=== PATIENT | female | born 1975 | race Caucasian/White ===

== ENCOUNTER → 2017-08-05 | Outpatient (CLI) | payer OTHER ==
[~2017-08-05] MED LIST: DICL75TA PO; FENO1TAB46 PO; GABA300C5 PO; LEVO125T4 PO; OMEGCAP PO
== END ==
LOC: CPRE 10:45
PROVIDERS: ATTEND Obstetrics & Gynecology
DX: Z00.00 Encounter for general adult medical examination without abnormal findings (principal)

== ENCOUNTER → 2017-08-13 | Day surgery (SDC) | payer OTHER ==
[~2017-08-13] VITALS: Ht 152.4 cm; Wt 71.0 kg
[~2017-08-13] MED LIST changes: +*morphine SULFATE 10 MG/ML PERIprocedure ONLY ONE; +ACETAMINOPHEN 1000 MG/100 ML 100 ML IV ONE; +BUPIVACAINE HCL PF 0.25% 30 ML VIAL ONE; +CHLORHEXIDINE GLUCONATE 2 % 1 PACK (2 CLOTHS) TOPICAL PRN; +DEXAMETHASONE SOD PHOS 4 MG/ML VIAL IV ONE; +DO NOT ADM ANY ANTICOAGULANT DRUGS PRN; +IBUPROFEN 600 MG TAB PO PRN; +KETOROLAC TROMETHAMINE 30 MG/ML (IVP) VIAL IV PUSH ONE; +KETOROLAC TROMETHAMINE 30 MG/ML (IVP) VIAL IVP PRN; +LACTATED RINGER'S 1000 ML INJ 1,000 ML IV ONE; +LACTATED RINGER'S 1000 ML INJ 1,000 ML IV SCH; +LACTATED RINGER'S 1000 ML IV PRN; +LIDOCAINE HCL 1% PF 5 ML SYRINGE OTHER ONE; +LORazepam 0.5 MG TAB PO PRN; +METOPROLOL TARTRATE 25 MG TAB PO PRN; +MIDAZOLAM HCL 2 MG/2 ML VIAL ONE; +MORPHINE SULFATE 4 MG/ML INJ IV PUSH PRN; +NORMOSOL R INJ 1,000 ML IV ONE; +ONDANSETRON HCL 4 MG/2 ML VIAL IV ONE; +ONDANSETRON HCL 4 MG/2 ML VIAL IVP PRN; +PHENYLEPH/NS 1000 MCG/10 ML SYR IV ONE; +POVIDONE IODINE 5% (ANTISEPSIS KIT) 4 APPLICATIONS EACH NARE PRN; +PROPOFOL 200 MG/20 ML AMP IV ONE; +ROCURONIUM INJ 50 MG/5 ML SYRINGE IV PUSH ONE; +SODIUM CHLORID 0.9% 500 ML IV PRN; +SODIUM CHLORIDE 0.9% FLUSH 10 ML FLUSH IV FLUSH PRN; +SODIUM CHLORIDE 0.9% FLUSH 10 ML FLUSH IV FLUSH SCH; +SUGAMMADEX SODIUM 200 MG/2 ML VIAL IV PUSH ONE; +ceFAZolin 2 GM PREMIX 50 ML IV SCH; +diphenhydrAMINE HCL 25 MG CAP PO PRN; +ePHEDrine/NS 25 MG/5 ML SYRINGE IV ONE; +oxyCODONE/ACETAMINOPHEN 5 MG/325 MG TAB PO PRN
--- NOTE | 2017-08-13 11:49 | MP ---
cc: Nixon Reza MD DATE OF OPERATION: 08/13/2017 PREOPERATIVE DIAGNOSIS: Patient with symptomatic large uterine fibroids, menorrhagia, pelvic pain. PROCEDURE: Robotic-assisted laparoscopic total hysterectomy with bilateral salpingo-oophorectomy, cystourethroscopy. POSTOPERATIVE DIAGNOSIS: Patient with symptomatic large uterine fibroids, menorrhagia, pelvic pain. SURGEON: Nixon Reza MD ANESTHESIA: General with endotracheal intubation. ESTIMATED BLOOD LOSS: 50 mL. DRAINS: Castellanos to gravity. OPERATIVE FINDINGS: Patient has large, multilobulated uterus previously documented on ultrasound consistent with uterine fibroids. The ovaries and tubes appeared normal bilaterally. There was some peritoneal scarring suggesting endometriosis, but no significant deformity. Cystourethroscopy demonstrated intact bladder, no focal lesion. Ureters were normal, peristalsing bilaterally. The ureterovesical orifice was intact bilaterally. INDICATION FOR PROCEDURE: Patient with debilitating chronic pelvic pain with symptomatic menorrhagia. Patient's evaluation was consistent with multiple uterine fibroids. After discussing the risks, benefits, complications, and alternatives, the patient elected for total hysterectomy. She also requested that both ovaries and tubes be removed at the same time. Preop, the patient received Ancef 2 gm prophylactically. PROCEDURE: Patient was taken to the operating room in stable condition, underwent general anesthesia with endotracheal intubation without complication. She was carefully positioned in the dorsal lithotomy position using Pedro stirrups on the lower extremities. She had sequentials placed on the lower extremities for VTE prophylaxis. After she was prepped and draped, a time-out was conducted, agreed by all present in the room. Castellanos catheter was inserted into the bladder, draining clear urine. Bivalved speculum was used to examine the cervix. Bimanual exam demonstrated a retroverted 10 week size uterus. The cervix was dilated to accommodate a medium VCare device. The VCare was secured and then the retractor was removed. Gloves were changed. The abdomen was examined. The patient had a previous Pfannenstiel incision which is well healed. No herniation. The umbilical port was chosen first, injected with 0.25% plain Marcaine and then placing a 5 mm Visiport trocar into the peritoneal cavity and then insufflating at low pressure and then placing the patient in Trendelenburg positioning to access and visualize the pelvic anatomy. Accessory ports were placed using 8 mm trocars, 2 on the right, 1 on the left. These were placed in avascular plane and then the umbilical port was traded to a 12 mm camera port. The patient had some adhesions involving the anterior abdominal wall and these were taken down by sharp dissection without difficulty and these were omental adhesions. The da Duc patient cart was then side docked. Using a 0 degree lens, the monopolars were connected to the 2 arm, the 1 arm was a bipolar fenestrated grasper and then a simple Prograsp was placed in the #3 arm. There were no collisions, good articulation was noted, visualization was excellent. Attention was directed to the surgeon cart, where again anatomic survey revealed evaluation of all the adjacent vital structures. After evaluation of the anatomy, dissection initiated by dissecting the left adnexa. The broad ligament was taken down anteriorly, dividing the round ligament in hemostatic fashion and then dissecting the retroperitoneal space to isolate and skeletonize the infundibulopelvic vessels on the patient's right side. The ureter was visualized and well out of the operative field. The dissection continued by isolating the uterine artery and vein on the right side, skeletonizing the vessels and securing them hemostatically to ligate the pedicle. The contralateral side was then addressed where similar dissection again identifying the ureter, skeletonizing the vessels, and then hemostatically securing each pedicle. This allowed dissection of the vaginal cuff, allowing colpotomy incisions to be made posteriorly and anteriorly. These were connected, allowing removal of the uterus intact with the fibroids, fallopian tubes, and ovaries bilaterally. The vaginal cuff was then closed after introducing a #1 Stratafix suture which was anchored and secured on the patient's left cuff and then brought transversely across to the contralateral side to close the cuff. Cuff integrity was checked with a sponge stick by the shampoo assistant. There was no active bleeding or hematoma. The suture was trimmed flush with the peritoneum and the suture needle was secured. The da Duc patient cart was then undocked. The laparoscopic tower was brought back into place and evaluation laparoscopically revealed no hematoma or bleeding. The suture needle was retrieved. Full count was correct. Irrigation and cleaning of the pelvis with copious normal saline was conducted. Observation on pressure revealed no active bleeding, both ureters peristalsing normally, the cuff was dry. At this point, the camera port was removed and the CrossBow device was used to introduce the #1 Vicryl suture to close the fascia. The fascia was closed with good integrity. Reevaluation of the pelvis revealed no active bleeding and then the remaining pneumoperitoneum was decompressed and then removing all trocars. Full count was correct. The trocar sites were closed with subcuticular stitch of 4-0 Monocryl, Steri-Strips and Band-Aids placed. Cystourethroscopy was performed after backfilling the bladder with normal saline. Approximately 250 mL was introduced. The Castellanos catheter was removed in sterile fashion and then the straight laparoscope was introduced through the urethra to evaluate the bladder. The urethra, the bladder, and the ureteral orifices were all checked and intact, functioning normally. At the completion of the cystourethroscopy, the scope was removed, the Castellanos catheter was reintroduced, draining clear urine. Examination of the vaginal vault was dry, no active bleeding or hematoma. At the completion of the case, final counts correct, patient was stable, she was taken to the recovery room on room air. Nixon Reza MD [facility] , 10:31 AM , 11:48 AM
[2017-08-13 12:55] VITALS: BP 98/56; PULSE 69; RESP 16; TEMP 98.5; O2SAT 100
== END | disposition home or self-care (01) ==
LOC: HSDC 06:03
PROVIDERS: ATTEND Obstetrics & Gynecology
DX: D25.2 Subserosal leiomyoma of uterus (principal); N92.0 Excessive and frequent menstruation with regular cycle; N73.6 Female pelvic peritoneal adhesions (postinfective)
CPT/HCPCS: 00840; 58554; 88307; J0131; J0690; J1100; J1885; J2250; J2270; J2370; J2405; J3010; J7120